=== PATIENT | male | born 2000 | race Caucasian/White ===

== ENCOUNTER 2022-09-09 20:04 | Outpatient (REF) | payer OTHER, SELFPAY ==
[2022-09-09 19:39] LABS: Abs Immature Grans 0.01 10^3/uL (0.0-0.06); Absolute Basophil Count 0.05 10^3/uL (0.0-0.2); Absolute Eosinophil Count 0.22 10^3/uL (0.0-0.7); Absolute Lymphocyte Count 1.42 10^3/uL (1.2-3.4); Absolute Monocyte Count 0.63 10^3/uL (0.1-0.8); Absolute Neutrophil Count 2.92 10^3/uL (1.2-6.7); Eosinophils % 4.2; HCT 42.9 % (40.0-50.0); HGB 15.5 g/dL (13.5-17.5); Immature Grans % 0.2; MCHC 36.1 % (32.0-36.0); MCV 89 fL (80-95); MPV 10.7 fL (8.0-11.0); Neutrophils % 55.6; Platelet Count 224 10^3/uL (130-400); RBC 4.85 10^6/uL (4.36-5.78); RDW-SD 38.6 fL; WBC 5.25 10^3/uL (4.4-10.8)
[2022-09-09 19:59] LABS: ALT 28 U/L (16-63); AST 18 U/L (15-37); Albumin 4.2 g/dL (3.4-5.0); Alkaline Phosphatase 51 U/L (46-116); Anion Gap 6.3 mmol/L (3-11); BUN 15 mg/dL (7-18); Bilirubin, Total 0.6 mg/dL (0.2-1.0); CO2 29.7 mmol/L (21.0-32.0); CREATININE 1.1 mg/dL (0.70-1.30); Calcium 9.1 mg/dL (8.5-10.1); Chloride 105 mmol/L (98-107); Estimated GFR 96.74 (mL/min/1.73m2); Glucose 87 mg/dL (74-106); Potassium 4.5 mmol/L (3.5-5.1); Sodium 141 mmol/L (136-145)
--- OUTSIDE RECORDS SUMMARY | 2022-09-09 20:06 | XMS_ITS | Continuity of Care Document ---
Author Name Unknown Organization [facility] Ambulatory Clinics Address [address] [place] [address] Encounter [facility] FIN NBR [id number] Date(s): 03/08/22 - 03/08/22 [facility] Ambulatory Clinics [address] [place] [address]- Encounter Diagnosis Recent URI(Discharge Diagnosis) - 03/08/22 Discharge Disposition: Home or Self Care Attending Physician: Katharine Manzano APRN Functional Status 03/08/22 Other exposure to Infectious Disease Non e Vital Signs Most recent to oldest [Reference Range]: 1 Temperature Tympanic [36.6-37.9 Deg C] 3 6.4 Deg C *LOW* (03/08/22 12:05 PM) Peripheral Pulse Rate [60-100 bpm] 62 bp m (03/08/22 12:05 PM) Weight 109 kg (03/08/22 12:05 PM) Weight Measured (lbs) 240.304 lb (03/08/22 12:05 PM) Height 172 cm (03/08/22 12:05 PM) Height/Length Measured (inches) 67.72 in ch (03/08/22 12:05 PM) BSA Measured 2.28 m2 (03/08/22 12:05 PM) Body Mass Index 36.84 kg/m2 (03/08/22 12:05 PM) Social History Social History Type Response Tobacco Never tobacco user T obacco Use:. Sex
== END 2022-09-09 20:05 | disposition home or self-care (01) ==
LOC: NCHCN 20:04
PROVIDERS: Visit Provider Nurse Practitioner Family
DX: R07.89 Other chest pain (principal)
CPT/HCPCS: 80053; 85025

== ENCOUNTER 2022-09-21 06:52 | Emergency (ER) | payer OTHER, SELFPAY ==
[2022-09-21 06:57] VITALS: BP 128/88; PULSE 105; RESP 20; TEMP 37.2; O2SAT 98
--- NOTE | 2022-09-21 07:00 | RT.EKG_ITS ---
APPROVED REPORT Exam: Resting ECG Reason for Exam: chest pain Patient Location: E HR:86 bpm ECG Measurements Heart Rate 86 AXIS DE 165 P 49 QRSd 92 QRS -8 QT 349 T 55 QTc 418 Conclusion Sinus rhythm...normal P axis, V-rate 60- 99 Probable left atrial enlargement...P >50mS, <-0.10mV V1 ST elevation suggests acute pericarditis...ST >0.10mV, ant/lat/inf. Sinus. Normal axis. Artifact V6. No acute ischemic findings.
--- NOTE | 2022-09-21 07:00 | RT.EKG_ITS ---
APPROVED REPORT Exam: Resting ECG Reason for Exam: chest pain Patient Location: E HR:88 bpm ECG Measurements Heart Rate 88 AXIS MO 159 P 44 QRSd 98 QRS -11 QT 349 T 52 QTc 423 Conclusion Sinus rhythm...normal P axis, V-rate 60- 99. Sinus. Normal axis. Normal intervals. [place] baseline V6 limiting interpretation. No STEMI.
--- NOTE | 2022-09-21 07:30 | DI.RAD_ITS ---
Exam(s) XR CHEST 2V PA LATERAL EXAM: XR CHEST 2V PA LATERAL CLINICAL HISTORY: cough, pui TECHNIQUE: 2D digital imaging was performed of the chest. Two images were obtained. PA and lateral views were obtained. COMPARISON: No exams were available for comparison FINDINGS: MEDIASTINUM: Normal. HEART: Normal. PULMONARY VASCULATURE: Normal. LUNGS: Clear. PLEURAL SPACE: No pleural effusion or pneumothorax. BONE:Within normal limits for the patient's age. OTHER FINDINGS:Normal. IMPRESSION: No acute pulmonary findings. DATA REPOSITORY: RADIATION DOSE DELIVERED:
[2022-09-21 07:41] LABS: Source Nasal/Nares
[2022-09-21 07:44] VITALS: RESP 18
[2022-09-21] MEDS: Ibuprofen 600 MG TAB PO (08:14)
--- NOTE | 2022-09-21 08:18 | ED.GENADUL_ITS ---
Discharge Plan Disposition Patient Disposition: Home Condition: Stable Discharge Details Clinical Impression: Bronchitis, Pleuritic chest pain Primary Care Provider: ISAIAS HENRIQUEZ ED Provider: Jose Lyon Home Meds and New Rx's Prescriptions: New albuterol sulfate 90 mcg/actuation HFA aerosol inhaler 2 puff inhalation Q6H PRNQty: 8.5 0RF Discharge Instructions Instructions: Albuterol (By breathing), Chest Pain (ED), Acute Bronchitis (ED) Additional Instructions: Use albuterol inhaler with spacer as follows: 2 puffs every 4-6 hours as needed for wheeze or shortness of breath. Please take ibuprofen over the counter. Take 600mg by mouth every 6 hours as needed for pain. Please contact your primary care physician to arrange follow-up. Return to the ER immediately for any worsening or new concerning symptoms. Stand Alone Forms: Work Release Referrals: ISAIAS HENRIQUEZ [Primary Care Provider] - Medical Decision Making 822 --22-year-old male who vapes and smokes marijuana, here today with cough and fever over the past 4 days now with pleuritic chest discomfort since last night. Patient is saturating well and in no respiratory distress. He does have subtle expiratory rales and rhonchi bilaterally on exam. I [id number] neb treatment and patient provided informed refusal. Concern for pneumonia. Plan to obtain chest x-ray. Consider COVID and will check COVID testing. I will give ibuprofen 600 mg for discomfort. Screening EKG was reviewed: Initial EKG with significant artifact. EKG was repeated at 718 and interpreted as sinus rhythm 88 bpm with no acute findings. 940 --COVID test negative. Chest x-ray was reviewed and interpreted by radiology: No acute pulmonary findings. Patient reassessed and does note some improvement after ibuprofen. Patient now agreeable to albuterol neb treatment. HPI General Mode of arrival: ambulatory . Date/Time Provider Initiated Documentation: 09/21/22 07:12 . Limitations to Documentation: no limitations . Information obtained by: patient . HPI Narrative: 22-year-old male who vapes and smokes marijuana presents with chief complaint of chest discomfort. Patient notes the past 4 days he has had fever and associated cough. Last night he developed central chest discomfort that is sharp, pleuritic in nature, worse with deep inspiration. No associated shortness of breath. He does note cough is productive of green to orange sputum and has had some blood-tinged. He did recently have sore throat and ear discomfort as well. Related Data Home Medications Medication Instructions Recorded Confirmed albuterol sulfate 90 mcg/actuation 2 puff inhalation Q6H PRN #8.5 09/21/22 aerosol inhaler grams Previous Rx's Medication Instructions Recorded albuterol sulfate 90 mcg/actuation 2 puff inhalation Q6H PRN #8.5 09/21/22 aerosol inhaler grams Allergies Allergy/AdvReac Type Severity Reaction Status Date / Time No Known Allergies Allergy Unverified 09/21/22 07:08 General Stated Complaint: Chest Pain JAYLEN: 3 PFSH All Active Problems (Updated 09/21/22 @ 09:42 by Jose Lyon MD) Bronchitis (Acute) Pleuritic chest pain (Acute) Medical History Irritable bowel syndrome Social History Smoking/Tobacco Use Status: Never Smoking risk assessment performed?: Yes Alcohol Intake: never Drug use: Never Substance use type: does not use Do you feel safe at home: Yes Do you feel safe in your relationship?: Yes Exam Const General: cooperative and no acute distress HENMT Ears: external ears normal and TM's normal bilaterally Mouth: moist mucous membranes Throat: posterior oropharynx normal Eyes Conjunctivae: normal conjunctivae Sclera: normal sclerae Neck Neck: no lymphadenopathy, trachea midline and supple Resp Effort & Inspection: not labored Auscultation: rhonchi lower bilaterally and wheezes expiratory wheezes Cardio Rate: regular rate and not tachycardic Rhythm: regular rhythm GI Palpation: soft, not firm, no guarding, no masses, not rigid and nontender Skin General skin exam: no rashes or lesions noted Neuro General: patient alert, patient awake, patient oriented x3 and tone normal Extrem General: no edema Psych Appearance: grossly normal Mental Status: mental status grossly normal Speech and Movement: speech and movement normal Course Vital Signs Vital signs: Vital Signs Temperature 37.2 C 09/21/22 06:57 Pulse 105 H 09/21/22 06:57 Respiratory Rate 20 09/21/22 06:57 Blood Pressure 128/88 09/21/22 06:57 Pulse Oximetry 98 09/21/22 06:57 Temperature 37.2 C 09/21/22 06:57 Pulse 105 H 09/21/22 06:57 Respiratory Rate 18 09/21/22 07:44 Respiratory Effort Normal, Non-Labored 09/21/22 07:44 Respiratory Depth Normal 09/21/22 07:44 Respiratory Pattern Normal 09/21/22 07:44 Blood Pressure 128/88 09/21/22 06:57 Blood Pressure Position Sitting 09/21/22 06:57 Pulse Oximetry 98 09/21/22 06:57 Oxygen Delivery Method Room Air 09/21/22 06:57 Oxygen Flow Rate 0 09/21/22 06:57 Pain Level 6 09/21/22 06:57 Lab/Test Results Lab/Test Results: Laboratory Tests Range/Units 09/21/22 07:32 COVID-19 Source Nasal/Nares
[2022-09-21 08:23] VITALS: BP 123/77; PULSE 79; RESP 15; O2SAT 96
[2022-09-21 08:30] VITALS: BP 127/65; PULSE 77; RESP 19; O2SAT 97
[2022-09-21 09:19] LABS: COVID-19 PCR Negative (Negative)
[2022-09-21] MEDS: Albuterol 2.5 MG/3 ML INH SOLN VIAL UPD (09:47)
[2022-09-21 10:31] VITALS: BP 140/78; PULSE 95; RESP 20; O2SAT 98
== END 2022-09-21 10:33 | disposition home or self-care (01) ==
LOC: ER 10:47
PROVIDERS: Emergency Provider Student in an Organized Health Care Education/Training Program; PCP Nurse Practitioner Family
DX: J40 Bronchitis, not specified as acute or chronic (principal); R07.81 Pleurodynia; F17.290 Nicotine dependence, other tobacco product, uncomplicated
CPT/HCPCS: 87635; 93005; 94640; 99284; 71046; 93010; J7613

== ENCOUNTER 2024-12-12 13:16 | Outpatient (REF) | payer BC, SELFPAY ==
[2024-12-12 15:42] LABS: HCT 45.3 % (40.0-50.0); HGB 16.2 g/dL (13.5-17.5); MCH 30.5 pg (27.0-33.0); MCHC 35.8 % (32.0-36.0); MCV 85 fL (80-95); MPV 10.1 fL (8.0-11.0); Platelet Count 232 10^3/uL (130-400); RBC 5.32 10^6/uL (4.36-5.78); RDW 12.0 % (11.8-14.1); RDW-SD 36.8 fL; WBC 6.64 10^3/uL (4.4-10.8)
[2024-12-12 16:07] LABS: Hemoglobin A1C < 4.5 % (<5.7)
[2024-12-12 16:21] LABS: ALT 34 U/L (16-63); AST 22 U/L (15-37); Albumin 4.4 g/dL (3.4-5.0); Alkaline Phosphatase 42 U/L (46-116); Anion Gap 7.0 mmol/L (3-11); BUN 14 mg/dL (7-18); Bilirubin, Total 1.5 mg/dL (0.2-1.0); CO2 27.0 mmol/L (21.0-32.0); Calcium 9.1 mg/dL (8.5-10.1); Calculated LDL 90 mg/dL (<100); Chloride 104 mmol/L (98-107); Cholesterol 164 mg/dL (<200); Estimated GFR 121.55 (mL/min/1.73m2); Glucose 88 mg/dL (74-106); HDL Cholesterol 43 mg/dL (>or=40); Potassium 4.0 mmol/L (3.5-5.1); Sodium 138 mmol/L (136-145); TSH (W/Ref FT4) 1.51 uIU/mL (0.36-3.74); Total Protein 7.2 g/dL (6.4-8.2); Triglyceride 155 mg/dL (<150); Vitamin B12 535 pg/mL (193-986); Vitamin D 25 Total 26 ng/mL (30-100)
[2024-12-12 16:22] LABS: Folate > 20.0 ng/mL (8.6-20.0)
== END 2024-12-12 13:17 | disposition home or self-care (01) ==
LOC: NCHCN 13:16
PROVIDERS: Visit Provider Family Medicine
DX: E66.01 Morbid (severe) obesity due to excess calories (principal); F41.9 Anxiety disorder, unspecified; F10.10 Alcohol abuse, uncomplicated
CPT/HCPCS: 80053; 80061; 82306; 85027; 82607; 82746; 83036; 84443